=== PATIENT | male | born 1980 | race Caucasian/White ===

== ENCOUNTER 2016-11-12 22:20 | Inpatient (IN) | payer MEDICAID ==
[~2016-11-12] VITALS: Ht 182.9 cm; Wt 60.4 kg
[2016-11-13] MEDS ORDERED: MIRTAZAPINE 15 MG TAB PO SCH (01:40)
[2016-11-13] MEDS ORDERED: TRAZODONE 50 MG TAB PO PRN (01:41)
[2016-11-13] MEDS ORDERED: LORAZEPAM 2 MG/ML VIAL IM PRN (01:45)
[2016-11-13] MEDS ORDERED: ALU/MAG/SIM 30 ML UDC PO PRN (01:45)
[2016-11-13] MEDS ORDERED: HALOPERIDOL 5 MG/ML VIAL IM PRN (01:45)
[2016-11-13] MEDS ORDERED: ACETAMINOPHEN 325 MG TAB PO PRN (01:45)
[2016-11-13] MEDS ORDERED: DIPHENHYDRAMINE 50 MG/ML VIAL IM PRN (01:45)
[2016-11-13] MEDS ORDERED: DIPHENHYDRAMINE 50 MG CAP PO PRN (01:45)
[2016-11-13] MEDS ORDERED: LORAZEPAM 2 MG TAB PO PRN (01:45)
[2016-11-13] MEDS ORDERED: HALOPERIDOL 5 MG TAB PO PRN (01:45)
[2016-11-13] MEDS ORDERED: MAG HYDROX 30 ML UDC PO PRN (01:45)
[2016-11-13 02:01] VITALS: BP_SYST 145; RESP 20; TEMP 97.8
[2016-11-13 02:08] VITALS: BMI 18.1
[2016-11-13] MEDS: MULTIVITS/MINERALS (THERAGRAN M) TAB PO SCH (09:26)
[2016-11-13] MEDS: NICOTINE 21 MG/24 HR TRANSDERM SCH (09:26)
[2016-11-13] MEDS: FLUOXETINE 20 MG CAP PO SCH (10:02)
[2016-11-13] MEDS: FAMOTIDINE 20 MG TAB PO SCH ×2 (10:25→21:18)
[2016-11-13 11:24] VITALS: Ht 182.9 cm; Wt 60.4 kg
[2016-11-13 12:51] VITALS: BP_SYST 168; RESP 20
[2016-11-13 19:38] VITALS: BP_SYST 121; RESP 20; TEMP 98.7
[2016-11-14 09:14] VITALS: BP_SYST 158; RESP 20; TEMP 97.8
[2016-11-14] MEDS: MULTIVITS/MINERALS (THERAGRAN M) TAB PO SCH (09:17)
[2016-11-14] MEDS: FLUOXETINE 20 MG CAP PO SCH (09:17)
[2016-11-14] MEDS: NICOTINE 21 MG/24 HR TRANSDERM SCH (09:17)
[2016-11-14] MEDS: FAMOTIDINE 20 MG TAB PO SCH (09:17)
[2016-11-14] MEDS ORDERED: LISINOPRIL 10 MG TAB PO SCH (10:35)
[2016-11-14] MEDS ORDERED: Ibuprofen 800 MG TAB PO PRN (10:55)
[2016-11-14 11:50] VITALS: RESP 20; TEMP 97.8
[2016-11-14 12:59] VITALS: BP_SYST 148; RESP 18; TEMP 98.3
== END 2016-11-14 14:40 | disposition home or self-care (01) | DRG 885 ==
LOC: ER 22:20 → EMR 11-13 00:55 → PSY 11-13 01:41
PROVIDERS: ADMIT Psychiatry & Neurology Psychiatry; ATTEND Psychiatry & Neurology Psychiatry
DX: F33.2 Major depressive disorder, recurrent severe without psychotic features (principal); I10 Essential (primary) hypertension; K21.9 Gastro-esophageal reflux disease without esophagitis; F17.210 Nicotine dependence, cigarettes, uncomplicated; F12.10 Cannabis abuse, uncomplicated; Z71.6 Tobacco abuse counseling
CPT/HCPCS: 36415; 80053; 80307; 80320; 80329; 81001; 84439; 84443; 85025; 85610

== ENCOUNTER 2016-11-18 23:40 | Emergency (ER) | payer MEDICAID ==
[2016-11-18] MEDS ORDERED: OPTIRAY 350 100 ML VIAL HMH IV ONE (23:41)
[2016-11-19] MEDS ORDERED: KCL CR 20 MEQ TAB PO ONE (02:39)
[2016-11-19] MEDS ORDERED: KCL 20 MEQ/15 ML UDC ONE (02:42)
[2016-11-19] MEDS ORDERED: ONDANSETRON 4 MG VIAL ONE (03:37)
[2016-11-19] MEDS ORDERED: SODIUM CHLORIDE 0.9% 1,000 ML ONE ×2 (03:37→04:45)
[2016-11-19] MEDS ORDERED: KETOROLAC 30 MG/ML VIAL ONE (03:37)
[2016-11-19] MEDS ORDERED: POTASSIUM CHLOR 10MEQ -ED ONLY 100 ML IV ONE (03:37)
[2016-11-19] MEDS ORDERED: PANTOPRAZOLE 80 MG in SODIUM CHLORIDE 0.9% 100 ML IV ONE (04:55)
[2016-11-19] MEDS ORDERED: ALU/MAG/SIM 30 ML UDC ONE (06:59)
[2016-11-19] MEDS ORDERED: CEFTRIAXONE 1 GM VIAL ONE (06:59)
[2016-11-19] MEDS ORDERED: LIDOCAINE 2% VISC 15 ML UDC ONE (06:59)
[2016-11-19] MEDS ORDERED: SODIUM CHLORIDE 0.9% 100 ML IV ONE (07:00)
[2016-11-19] MEDS ORDERED: MORPHINE 4 MG/ML SYR ONE (07:00)
== END 2016-11-19 08:48 | disposition home or self-care (01) ==
LOC: ER 23:40
DX: N39.0 Urinary tract infection, site not specified (principal); K29.00 Acute gastritis without bleeding
CPT/HCPCS: 36415; 71020; 74000; 74177; 80053; 81001; 83690; 85025; 86677; 87088; 93005; 96361; 96365; 96366; 96375